=== PATIENT | female | born 1985 | race Caucasian/White ===

== ENCOUNTER → 2024-06-09 | Outpatient (CLI) | payer BC ==
--- NOTE | 2024-07-16 07:23 | XR ---
Patient Мария Daly ID [id number] [id number] EXAMINATION TYPE: XR shoulder complete RT No charge DATE OF EXAM: 06/09/2024 1:26 PM CLINICAL INDICATION: Pain COMPARISON: Ankle same day TECHNIQUE: XR shoulder complete RT; examined in AP, internally rotated and scapular Y projections. FINDINGS: No evidence of acute osseous pathology, joint dislocation, or soft tissue swelling. The remaining po rtions of the visualized chest are unremarkable. Mild degeneration changes of the acromion and dista l clavicle. IMPRESSION: No charge 1. No acute osseous pathology. 2. Mild acromioclavicular joint degeneration with osteophyte formation of the distal clavicle and ac romion.
--- NOTE | 2024-07-16 07:23 | XR ---
Patient Мария Daly ID [id number] DO1985 [id number] EXAMINATION TYPE: No charge - XR clavicle RT No charge DATE OF EXAM: 06/09/2024 1:24 PM CLINICAL INDICATION: pain Rt. COMPARISON: THIS EXAM WAS READ DURING PACS DOWNTIME, NO PRIORS AVAILABLE. TECHNIQUE: XR clavicle RT examined in AP and cephalic tilt views . FINDINGS: Small osteophytes of the acromion and distal clavicle. No evidence of acute or chronic osseous pathol ogy, joint dislocation or soft tissue swelling. IMPRESSION: No charge 1. Mild acromioclavicular joint degeneration with osteophyte formation of the distal clavicle and ac romion. 2. No evidence of fracture.
== END | disposition home or self-care (01) ==
LOC: RADXRMAIN 12:02
PROVIDERS: ATTEND Family Medicine
DX: M19.011 Primary osteoarthritis, right shoulder (principal); M25.711 Osteophyte, right shoulder; M19.071 Primary osteoarthritis, right ankle and foot; M25.771 Osteophyte, right ankle